=== PATIENT | female | born 1965 | race Two or more races ===

== ENCOUNTER 2024-07-01 12:09 | Emergency (ER) | payer OTHER ==
[~2024-07-01] VITALS: Ht 160 cm; Wt 72.6 kg
[2024-07-01 12:26] VITALS: BP 143/86; TEMP 98.6; O2SAT 99
[2024-07-01] MEDS ORDERED: NAPR-1164 PO (12:34)
== END 2024-07-01 12:54 | disposition home or self-care (01) ==
LOC: ER 12:19
DX: M79.18 Myalgia, other site (principal)
CPT/HCPCS: 99282; A6403